=== PATIENT | female | born 1985 | race Caucasian/White ===

== ENCOUNTER 2022-06-18 10:08 | Emergency (ER) | payer OTHER, SELFPAY ==
--- NOTE | 2022-06-18 10:38 | ED.URI ---
HPI - URI/Sore Throat General Chief Complaint: Upper Respiratory Infection Stated Complaint: headache,cough,congestion Time Seen by Provider: 06/18/22 10:35 Source: patient and RN notes reviewed Mode of arrival: ambulatory Limitations: no limitations History of Present Illness HPI Narrative: 37-year-old female presented for complaint of sinus pressure in the forehead, sinus congestion and cough for about 3 weeks. She endorses it did go away about 4 days ago but then returned again yesterday. She denies associated nausea, vomiting, diarrhea, shortness of breath, wheezing, fever chills this time. She is not vaccinated. MD elicited complaint: cough Related Data Home Medications Medication Instructions Recorded Confirmed levonorgestrel-ethinyl estradiol 1 tablet PO DAILY 06/18/22 06/18/22 0.1 mg-20 mcg tablet (Vienva) sertraline 100 mg tablet 100 mg PO DAILY 06/18/22 06/18/22 Allergies Allergy/AdvReac Type Severity Reaction Status Date / Time Penicillins AdvReac Mild HIVES Verified 06/18/22 10:37 Review of Systems Review of Systems: CONSTITUTIONAL: Denies malaise, chills, sweats, fever EYES: Denies visual changes, redness, or discharge ENT: Reports rhinorrhea, congestion, sinus pain, denies otalgia, sore throat CARDIOVASCULAR: Denies chest pain, palpitations, edema RESPIRATORY: Reports cough, post nasal drainage. Denies dyspnea GASTROINTESTINAL: Denies abdominal pain, nausea, vomiting, diarrhea SKIN: Denies rash or itching MUSCULOSKELETAL: denies myalgia Exam Narrative: GENERAL: Ill-appearing, nontoxic EYES: PERRLA, conjunctivae clear ENT: Mucous membranes moist. TMs pearly lombardo with dull light reflex bilaterally; no tragal tenderness. Oropharynx erythematous without lesions or exudate, Tonsils absent. no drooling, no hoarseness, no trismus, uvula midline. CHEST: Clear to auscultation, breath sounds equal. No wheezing, rhonchi, rales, or stridor. HEART: Regular rate and rhythm. No murmur heard. SKIN: Warm, dry, no rash. NEURO: Alert and oriented x3. PSYCH: Normal mood and affect Course Course Emergency Course: Patient is aware of diagnosis, understands and agrees to treatment plan. Anticipatory guidance given. Patient agrees to follow-up as directed and is aware of reasons to seek care at the emergency department. Portions of this record may have been created with voice recognition software Level of Care: Express Care Visit Vital Signs Vital signs: Vital Signs Temperature 97.6 F 06/18/22 10:39 Pulse Rate 99 06/18/22 10:39 Respiratory Rate 16 06/18/22 10:39 Blood Pressure 133/93 H 06/18/22 10:39 Pulse Oximetry 100 06/18/22 10:39 Oxygen Delivery Room Air 06/18/22 10:39 Temperature 97.6 F 06/18/22 10:39 Pulse Rate 99 06/18/22 10:39 Respiratory Rate 16 06/18/22 10:39 Blood Pressure 133/93 H 06/18/22 10:39 Pulse Oximetry 100 06/18/22 10:39 Oxygen Delivery Room Air 06/18/22 10:39 reviewed MDM - URI/Sore Throat MDM Narrative Medical decision making narrative: Advised supportive measures and signs/symptoms to go to the ER. Pt is appropriate for outpt treatment and f/u. Differential Diagnosis Differential diagnosis: Likely upper respiratory infection, sinusitis, viral infection and bronchitis Discharge Plan Discharge Clinical Impression: Acute rhinosinusitis Patient Disposition: Home, Self-Care Condition: Stable Instructions: Antibiotic Form, Rhinosinusitis (ED) Additional Instructions: Take antibiotic as directed Recommend Flonase spray and Zyrtec (or Claritin/Chanell) over the counter Cough syrup may cause drowsiness; avoid driving or take it at night time. Tylenol 1000mg every 8 hours as needed for pain Symptomatic treatment includes: rest, fluids, and increase humidity of the air at home. Follow up with your primary care provider in 1 week. Go to the ER for worsening symptoms or concerns. Prescriptions: New doxycycl
[2022-06-18 10:39] VITALS: BP 133/93; PULSE 99; RESP 16; TEMP 36.4; O2SAT 100
== END 2022-06-18 10:51 | disposition home or self-care (01) ==
PROVIDERS: Emergency Provider Nurse Practitioner Family; PCP Family Medicine
DX: J01.90 Acute sinusitis, unspecified (principal)
CPT/HCPCS: 99213; G0463

== ENCOUNTER 2022-07-14 15:36 | Emergency (ER) | payer OTHER, SELFPAY ==
[2022-07-14 15:46] VITALS: BP 139/95; PULSE 78; RESP 18; TEMP 36.4; O2SAT 98
--- NOTE | 2022-07-14 15:47 | ED.URI ---
HPI - URI/Sore Throat General Chief Complaint: Upper Respiratory Infection Stated Complaint: headache; sinus pressure Time Seen by Provider: 07/14/22 15:47 Source: patient and RN notes reviewed Mode of arrival: ambulatory Limitations: no limitations History of Present Illness HPI Narrative: 37-year-old female presented for complaint of headache, body aches, sinus pressure/congestion, cough, fever/chills. onset 3 days. Also reports waking with fever blister on her lower lip yesterday. Cough is nonproductive. She has been taking Zyrtec since symptoms started. She denies chest pain, shortness of breath, wheezing, nausea, vomiting, diarrhea. Endorses sick contacts. MD elicited complaint: cough Related Data Home Medications Medication Instructions Recorded Confirmed levonorgestrel-ethinyl estradiol 1 tablet PO DAILY 06/18/22 07/14/22 0.1 mg-20 mcg tablet (Vienva) sertraline 100 mg tablet 100 mg PO DAILY 06/18/22 07/14/22 Allergies Allergy/AdvReac Type Severity Reaction Status Date / Time Penicillins AdvReac Mild HIVES Verified 07/14/22 15:45 Review of Systems Review of Systems: Per HPI Exam Narrative: GENERAL: Ill-appearing, nontoxic EYES: PERRLA, conjunctivae clear ENT: Mucous membranes moist. 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 TMs pearly lombardo with dull light reflex bilaterally; no tragal tenderness. Oropharynx without lesions or exudate, tonsils absent. CHEST: Clear to auscultation, breath sounds equal. HEART: Regular rate and rhythm. No murmur heard. SKIN: Warm, dry, no rash. NEURO: Alert and oriented x3. PSYCH: Normal mood and affect Course Course Emergency Course: Patient is aware of diagnosis, understands and agrees to treatment plan. Anticipatory guidance given. Patient agrees to follow-up as directed and is aware of reasons to seek care at the emergency department. Portions of this record may have been created with voice recognition software Level of Care: Express Care Visit Vital Signs Vital signs: Vital Signs Temperature 97.6 F 07/14/22 15:46 Pulse Rate 78 07/14/22 15:46 Respiratory Rate 18 07/14/22 15:46 Blood Pressure 139/95 H 07/14/22 15:46 Pulse Oximetry 98 01/15/23 15:46 Oxygen Delivery Room Air 07/14/22 15:46 Temperature 97.6 F 07/14/22 15:46 Pulse Rate 78 07/14/22 15:46 Respiratory Rate 18 07/14/22 15:46 Blood Pressure 139/95 H 07/14/22 15:46 Pulse Oximetry 98 07/14/22 15:46 Oxygen Delivery Room Air 07/14/22 15:46 reviewed MDM - URI/Sore Throat MDM Narrative Medical decision making narrative: results of COVID and flu reviewed with patient. Rx valacyclovir for cold sore. Advised supportive measures and signs/symptoms to go to the ER. Pt is appropriate for outpt treatment and f/u. Differential Diagnosis Differential diagnosis: Likely upper respiratory infection, sinusitis and viral infection Lab Data Labs: Influenza A Screen Negative Reference Range: Negative Influenza B Screen Negative Reference Range: Negative Discharge Plan Discharge Clinical Impression: Cold sore, Viral infection Patient Disposition: Home, Self-Care Condition: Stable Instructions: Viral Syndrome (ED) Additional Instructions: Recommend Flonase spray and Zyrtec (or Claritin/Chanell) over the counter Cough syrup may cause drowsiness; avoid driving or take it at night time. Tylenol 1000mg every 8 hours as needed for pain Symptomatic treatment includes: rest, fluids, and increase humidity of the air at home. Follow up with your primary care provider in 1 week. Go to the ER for worsening symptoms or concerns. Prescriptions: New valacyclovir [Valtrex] 1 gram tablet 2,000 mg PO Q12H 1 Days Qty: 4 0RF No Action levonorgestrel-ethinyl estrad [Vienva] 0.1-20 mg-mcg tablet
== END 2022-07-14 16:21 | disposition home or self-care (01) ==
PROVIDERS: Emergency Provider Nurse Practitioner Family; PCP Student in an Organized Health Care Education/Training Program
DX: B00.1 Herpesviral vesicular dermatitis (principal); B34.9 Viral infection, unspecified; Z20.822 Contact with and (suspected) exposure to COVID-19
CPT/HCPCS: 87426; 87804; 99213; C9803; G0463

== ENCOUNTER 2025-06-13 13:43 | Emergency (ER) | payer SELFPAY ==
--- NOTE | ~2025-06-13 | XR_ITS ---
EXAMINATION: XR finger 5th LT min 2V, 06/13/2025 14:00 SHANK PINNER HISTORY: injury COMPARISON: No comparisons available. Findings: No acute fracture or malalignment. No significant degenerative changes. Soft tissues unremarkable. Impression: No acute fracture or malalignment. Reviewed, dictated and finalized at location [facility] Impression: No acute fracture or malalignment.
--- NOTE | 2025-06-13 13:49 | ED_ITS ---
HPI - Extremity Injury (Upper) General Chief Complaint: Extremity Injury, Upper Stated Complaint: L Finger Time Seen by Provider: 06/13/25 14:12 Source: patient and RN notes reviewed Mode of arrival: ambulatory Limitations: no limitations History of Present Illness HPI narrative: 40-year-old female presents with concern for pain is 5th digit the left hand. She reports 1 month ago she was training a dog and jumped and its head her finger, jamming it. Reports she has had some pain but she has been using and is normal. Reports last several days she started using a splint because she is having some pain and swelling in the mid digit. She denies new injury. She reports pain has been increasing it is waking her up at night MD complaint: injury to: left and finger Related Data Home Medications ?Medication ?Instructions ?Recorded ?Confirmed ?Last Taken ?Type sertraline 100 mg tablet 100 mg PO DAILY 06/18/22 Unknown History amlodipine 5 mg tablet mg 06/13/25 Unknown History levonorgestrel (Mirena) 1 device intrauterine ONCE 1 08/14/24 06/13/25 Unknown History Allergies Allergy/AdvReac Type Severity Reaction Status Date / Time Penicillins Allergy Mild HIVES Verified 06/13/25 13:53 Review of Systems Review of Systems: CONSTITUTIONAL: Denies malaise, chills, sweats, or fever. CARDIOVASCULAR: Denies chest pain, palpitations, or edema. RESPIRATORY: Denies cough or dyspnea. SKIN: Denies rash or itching, bruising, redness MUSCULOSKELETAL: Reports pain and swelling to the 5th mid digit NEUROLOGIC: Denies numbness, weakness All systems reviewed & are unremarkable except as noted in HPI and below PMFSH Comments At time of signature, agree with nursing past medical, surgical, social and fami ly history. There is no relevant family history pertinent to the presenting complaint Exam Narrative: GENERAL: Well-appearing, well-nourished, and in no acute distress. HEAD: Normocephalic EYES: PERRLA, conjunctivae clear NECK: Supple. CHEST: Speaks in full sentences. No respiratory distress. HEART: Regular rate and rhythm. Normal and equal peripheral pulses. EXTREMITIES: 5th digit of left hand has grossly normal strength and sensation. Range of motion limited, simply due to swelling of mid digit. No clubbing, cyanosis, or edema noted. Tenderness and swelling noted to the MIP joint. Skin intact. Normal digital cascade with flexion of fingers, median, ulnar and radial nerve intact. Normal sensation of each side of finger. Normal thumb opposition. Good capillary refill and radial pulse. Distal capillary refill less than 3 seconds. SKIN: Warn, dry, intact, pink. No rash NEURO: Alert and oriented x3. PSYCH: Normal mood and affect Course Course Emergency Course: Patient is aware of diagnosis, understands and agrees to treatment plan. Anticipatory guidance given. Patient agrees to follow-up as directed and is aware of reasons to seek care at the emergency department. Portions of this record may have been created with voice recognition software Level of Care: [facility] Visit MDM Differential Diagnosis Differential Diagnosis: I evaluated this patient in the [facility]. History is obtained from patient who is an independent historian and physical exam was performed.? Available medical records were reviewed. ? Exam findings and relevant testing show no acute concerns or changes; patient is non-toxic appearing and is in no distress. ? Patients injury and/or pain is consistent with musculoskeletal etiology. No signs of neurological or vascular compromise on exam. Compartments and tissues are soft without signs of compartment syndrome. Pain is felt appropriate for further evaluation on an outpatient basis. Differential diagnosis and treatment plan were discussed with the patient. Patient agrees with discussion and after shared medical decision making agrees with plan of care. All questions were answered to the patient's satisfaction. Patient is appropriate for outpatient treatment and follow-up. Imaging Data My impression: Images reviewed, interpreted by radiologist, agree, see report. Radiologist's impression: EXAMINATION: XR finger 5th LT min 2V, 06/13/2025 14:00 HORSER UP HISTORY: injury COMPARISON: No comparisons available. Findings: No acute fracture or malalignment. No significant degenerative changes. Soft tissues unremarkable. Impression: No acute fracture or malalignment. Discharge Plan Discharge Clinical Impression: Finger sprain Patient Disposition: Home Condition: Stable Instructions: Finger Sprain (ED) Additional Instructions: Avoid activities that cause pain until the pain subsides. Ice to the area 20-30 minutes 4-6 times a day Elevate above heart Orthopedic splint as directed for comfort for the next 5-7 days Tylenol for lesser pain Ibuprofen regularly for the next 2-3 days for the inflammation Follow up with your primary care provider if the condition is not improving within 1 week. If the condition worsens with numbness, tingling, decrease sensation with weak ness seek treatment in the emergency room immediately. Patient Language: Ghanaian Prescriptions: No Action sertraline 100 mg tablet 100 mg PO DAILY valacyclovir [Valtrex] 1 gram tablet 2,000 mg PO Q12H 1 Days Qty: 4 0RF Mirena 21 mcg/24hr (up to 8 yrs) 52 mg intrauterine device 1 device intrauterine ONCE Rx Instructions: as a single dose amlodipine 5 mg tablet Follow-up/Referrals: James Clark MD [Physician, Plastic Surgery] Referral Note: Jammed finger 1 month ago, within the last few days has swelling an dpain of the MIP joint. X-ray normal Antwan,MD Elsy [Primary Care Provider, Unknown] Time of Disposition: 14:20
[2025-06-13 13:52] VITALS: BP 158/87; PULSE 77; RESP 16; TEMP 37.1; O2SAT 99
== END 2025-06-13 14:24 | disposition home or self-care (01) ==
PROVIDERS: Emergency Provider Nurse Practitioner; PCP Family Medicine
DX: S63.617A Unspecified sprain of left little finger, initial encounter (principal); W54.1XXA Struck by dog, initial encounter; I10 Essential (primary) hypertension; F41.9 Anxiety disorder, unspecified; F32.A Depression, unspecified; Z86.16 Personal history of COVID-19
CPT/HCPCS: 73140; 99213; G0463